=== PATIENT | female | born 1975 | race Caucasian/White ===

== ENCOUNTER 2018-10-18 18:23 | Emergency (ER) | payer MEDICAID ==
[~2018-10-18] VITALS: Ht 160 cm; Wt 75.0 kg
[2018-10-18 18:29] VITALS: Ht 160 cm; Wt 75.0 kg
[2018-10-18] MEDS ORDERED: BUTALB-APAP-CA1 EACH PO (20:15)
[2018-10-18 20:26] VITALS: BP 123/85
== END 2018-10-18 20:29 | disposition home or self-care (01) ==
LOC: D.ER 18:23
DX: G43.909 Migraine, unspecified, not intractable, without status migrainosus (principal)